=== PATIENT | male | born 1985 | race Hispanic/Latino ===

== ENCOUNTER 2019-09-01 17:22 | Emergency (ER) | payer SELFPAY ==
[2019-09-01] MEDS ORDERED: CEPHALEXIN500 M1 PO (18:27)
[2019-09-01 18:40] VITALS: BP 139/84
== END 2019-09-01 18:45 | disposition home or self-care (01) | DRG 563 ==
LOC: ED 17:22
PROC: 3E0T3BZ Introduction of Anesthetic Agent into Peripheral Nerves and Plexi, Percutaneous Approach (ICD-10-PCS; principal; 2019-09-01)
DX: S62.522B Displaced fracture of distal phalanx of left thumb, initial encounter for open fracture (principal); W20.8XXA Other cause of strike by thrown, projected or falling object, initial encounter; Y93.89 Activity, other specified; Y92.89 Other specified places as the place of occurrence of the external cause; Y99.0 Civilian activity done for income or pay